=== PATIENT | male | born 1960 | race Hispanic/Latino ===

== ENCOUNTER 2019-07-23 08:48 | Emergency (ER) | payer SELFPAY ==
[2019-07-23] MEDS ORDERED: TETANUS,DIPH,PERTUSS(ACELL) VACCINE 0.5 ML SYRINGE IM ONE (09:04)
--- NOTE | 2019-07-23 09:09 | Emergency Department Report ---
HPI <JOSE C ANDRADE - Last Filed: 07/23/19 11:37> - HPI HPI: Room 1 The patient is a 58-year-old male presenting with chief complaint of facial injury after fall. The patient states he tripped and fell striking his face this morning is 04:30. Patient sustained a large laceration to the right side of his face. Patient denies loss of consciousness and currently denies pain. Patient admits to consuming alcohol this morning Location: [See above] Duration: [See above] Quality: [See above] Severity: [See above] Timing: [See above] Context: [See above] Modifying factors: [See above] Associated signs and symptoms: [see above] <CLAUDIA CARDENAS - Last Filed: 07/23/19 15:00> - General Chief Complaint: Fall Time Seen by Provider: 07/23/19 08:58 ED Past Medical Hx <JOSE C ANDRADE - Last Filed: 07/23/19 11:37> - Past Medical History Previous Medical History?: Yes Hx Asthma: Yes - Surgical History Past Surgical History?: Yes Additional Surgical History: hand surgery - Family History Family history: no significant - Social History Smoking Status: Current Some Day Smoker Substance Use Type: None (denies illicit drug use), Alcohol <CLAUDIA CARDENAS - Last Filed: 07/23/19 15:00> - Medications Home Medications: Home Medications Medication Instructions Recorded Confirmed Last Taken Type ALBUTEROL Inhaler (OR & NICU) 2 puff IH QID PRN 30 Days 11/01/15 Unknown Rx [ProAir HFA Inhaler] inhalation ALBUTEROL NEB's [Proventil 0.083% 2.5 mg IH QID PRN #1 box 11/01/15 Unknown Rx NEBS] predniSONE [Deltasone] 20 mg PO BID #10 tab 11/01/15 Unknown Rx Ibuprofen [Motrin 800 MG tab] 800 mg PO Q8HR PRN #20 tablet 07/23/19 Unknown Rx traMADoL [Ultram] 50 mg PO Q6HR PRN #10 tablet 07/23/19 Unknown Rx ED Review of Systems ROS: Stated complaint: ETOH Other details as noted in HPI <JOSE C ANDRADE - Last Filed: 07/23/19 11:37> ROS: Stated complaint: ETOH Other details as noted in HPI Constitutional: no symptoms reported Eyes: eye pain Respiratory: no symptoms reported Cardiovascular: denies: chest pain Endocrine: no symptoms reported Gastrointestinal: denies: abdominal pain Genitourinary: denies: dysuria Musculoskeletal: denies: back pain Neurological: denies: headache <CLAUDIA CARDENAS K - Last Filed: 07/23/19 15:00> Physical Exam - Physical Exam Vital Signs: Vital Signs 07/23/19 07/23/19 07/23/19 08:50 09:00 09:30 Temperature 97.2 F L Pulse Rate 85 59 L 80 Respiratory 14 11 L 16 Rate Blood Pressure 149/99 149/97 140/86 O2 Sat by Pulse 98 98 99 Oximetry 07/23/19 07/23/19 10:00 10:30 Temperature Pulse Rate 59 L 72 Respiratory 8 L 10 L Rate Blood Pressure 158/86 131/101 O2 Sat by Pulse 99 99 Oximetry <JOSE C ANDRADE - Last Filed: 07/23/19 11:37> - Physical Exam Vital Signs: Vital Signs 07/23/19 08:50 Temperature 97.2 F L Pulse Rate 71 Respiratory 14 Rate Blood Pressure 149/99 O2 Sat by Pulse 98 Oximetry Physical Exam: GENERAL: The patient is well-developed well-nourished []. [] HEENT: Normocephalic. Atraumatic. Extraocular motions are intact. Patient has moist mucous membranes. Large triangular laceration adjacent to the right side of the nose and overlying the right maxillary sinus NECK: Supple. No axial tenderness to palpation or step off CHEST/LUNGS: There is no respiratory distress noted. HEART/CARDIOVASCULAR: Regular. There is no tachycardia. ABDOMEN: Abdomen is soft, nontender. Patient has normal bowel sounds. There is no abdominal distention. SKIN: There is no rash. There is no edema. There is no diaphoresis. See HEENT above NEURO: The patient is awake, alert, and oriented. The patient is cooperative. The patient has no focal neurologic deficits. The patient has normal speech MUSCULOSKELETAL: There is no evidence of acute injury. <CLAUDIA CARDENAS - Last Filed: 07/23/19 15:00> ED Course Vital Signs 07/23/19 07/23/19 07/23/19 08:50 09:00 09:30 Temperature 97.2 F L Pulse Rate 85 59 L 80 Respiratory 14 11 L 16 Rate Blood Pressure 149/99 149/97 140/86 O2 Sat by Pulse 98 98 99 Oximetry 07/23/19 07/23/19 10:00 10:30 Temperature Pulse Rate 59 L 72 Respiratory 8 L 10 L Rate Blood Pressure 158/86 131/101 O2 Sat by Pulse 99 99 Oximetry <RAYMONDJOSE C - Last Filed: 07/23/19 11:37> Vital Signs 07/23/19 08:50 Temperature 97.2 F L Pulse Rate 71 Respiratory 14 Rate Blood Pressure 149/99 O2 Sat by Pulse 98 Oximetry <CLAUDIA CARDENAS - Last Filed: 07/23/19 15:00> - Laceration /Wound Repair Face Wound Location: face Wound Length (cm): 10 Wound's Depth, Shape: linear, flap Wound Explored: no foreign body removed Irrigated w/ Saline (ccs): 80 Betadine Prep?: Yes Anesthesia: 1% Lidocaine Volume Anesthetic (ccs): 8 Wound Repaired With: sutures Suture Size/Type: 6:0, proline Number of Sutures: 26 (2 continuous (25 sutures), 1 simple suture) Layer Closure?: No Sterile Dressing Applied?: Yes Progress: mild blood loss. Pt tolerated procedure well. No immediate complications post procedure <RAYMONDJOSE C - Last Filed: 07/23/19 11:37> ED Medical Decision Making - Lab Data Result diagrams: 07/23/19 09:32 07/23/19 09:32 <RAYMONDJOSE C - Last Filed: 07/23/19 11:37> - Lab Data Result diagrams: 07/23/19 09:32 07/23/19 09:32 Laboratory Tests 07/23/19 07/23/19 07/23/19 09:32 09:32 09:32 WBC 4.4 L RBC 3.52 L Hgb 14.2 Hct 41.5 MCV 118 H MCH 40 H MCHC 34 RDW 13.7 Plt Count 222 Lymph % (Auto) 20.1 Citrus % (Auto) 8.1 H Eos % (Auto) 0.8 Baso % (Auto) 2.4 H Lymph # 0.9 L Citrus # 0.4 Eos # 0.0 Baso # 0.1 Seg Neutrophils % 68.6 Seg Neutrophils # 3.0 Sodium 141 Potassium 3.9 Chloride 102.1 Carbon Dioxide 22 Anion Gap 21 BUN 10 Creatinine 0.7 L Estimated GFR > 60 BUN/Creatinine Ratio 14 Glucose 98 Calcium 8.8 Plasma/Serum Alcohol 0.37 H - Radiology Data Radiology results: report reviewed (CT head, CT facial bones, CT cervical spine), image reviewed (CT head, CT facial bones, CT cervical spine) [address] [address] Cat Scan Report Signed Patient: EDILBERTO MICHELE MR#: [id number] : 1960 Acct:[id number] Age/Sex: 58 / M ADM Date: 07/23/19 Loc: ED Attending Dr: Ordering Physician: CLAUDIA CARDENAS MD Date of Service: 07/23/19 Procedure(s): CT head/brain wo con Accession Number(s): [id number] cc: CLAUDIA CARDENAS MD CT head/brain wo con INDICATION / CLINICAL INFORMATION: 58 years Male; facial injury after fall. TECHNIQUE: Routine CT head without contrast. All CT scans at this location are performed using CT dose reduction for ALARA by means of automated exposure control. COMPARISON: None. FINDINGS: BRAIN / INTRACRANIAL CONTENTS: The brain appears to demonstrate appropriate attenuation for age. There is mild cerebral atrophy. The ventricular system is correspondingly appropriate in size and configuration. There is no CT evidence of acute intracranial hemorrhage or significant mass effect. ORBITS: No significant abnormality of visualized orbits. SINUSES / MASTOIDS: No significant abnormality the visualized paranasal sinuses or mastoid air cells. CRANIOCERVICAL JUNCTION: No significant abnormality. ADDITIONAL FINDINGS: None. IMPRESSION: 1. There is no CT evidence of acute intracranial process. Signer Name: Abdoul Obando MD Signed: 07/23/2019 9:59 AM Workstation Name: [id number] Transcribed By: MR Dictated By: Abdoul Obando MD Electronically Authenticated By: Abdoul Obando MD Signed Date/Time: 07/23/19958 DD/ 4 TD/TT: [address] [address] Cat Scan Report Signed Patient: EDILBERTO MICHELE MR#: [id number] : [birth year] Acct:[id number] Age/Sex: 58 / M ADM Date: 07/23/19 Loc: ED Attending Dr: Ordering Physician: CLAUDIA CARDENAS MD Date of Service: 07/23/19 Procedure(s): CT facial bones wo con Accession Number(s): [id number] cc: CLAUDIA CARDENAS MD CT facial bones without contrast. CLINICAL HISTORY: Facial pain and trauma. FINDINGS: There is no CT evidence of acute fracture involving the visualized facial bones. The orbital couch, sinuses and visualized sacrum at arches appear intact. The optic globes image appropriate size and configuration. No significant post septal inflammatory changes are identified. There is a defect involving the superficial right premaxillary soft tissues likely related to the patient's history of trauma. There is moderate mucosal thickening along the inferior right maxillary sinus. There is mild scattered mucosal thickening within the ethmoid air cells. All CT scans at this location are performed using the CT dose reduction for ALARA by means of automated exposure control. IMPRESSION: There is no CT evidence of acute fracture involving the visualized facial bones. There is a defect involving the superficial right premaxillary soft tissues with mild edema compatible with laceration and patient's history of trauma. Signer Name: Abdoul Obando MD Signed: 07/23/2019 10:13 AM Workstation Name: [id number] Transcribed By: MR Dictated By: Abdoul Obando MD Electronically Authenticated By: Abdoul Obando MD Signed Date/Time: 07/23/19 1013 DD/ 1007 TD/TT: [facility] [address] [place] [address] Cat Scan Report Signed Patient: EDILBERTO MICHELE MR#: [id number] : 1960 Acct:[id number] Age/Sex: 58 / M ADM Date: 07/23/19 Loc: ED Attending Dr: Ordering Physician: CLAUDIA CARDENAS MD Date of Service: 07/23/19 Procedure(s): CT cervical spine wo con Accession Number(s): [id number] cc: CLAUDIA CARDENAS MD CT cervical spine wo con INDICATION / CLINICAL INFORMATION: 58 years Male; facial injury after fall. TECHNIQUE: Axial CT images of the cervical spine were obtained. Sagittal and coronal reformatted images were produced. All CT scans at this location are performed using CT dose reduction for ALARA by means of automated exposure control. COMPARISON: None available. FINDINGS: POST- SURGICAL CHANGES: None. ALIGNMENT: There is slight curvature of the cervical spine, convex toward the right. However, there is no significant spondylolisthesis. VERTEBRAE: There are multilevel degenerative changes involving the cervical spine with endplate cystic findings.. However, there is no definitive CT evidence of acute fracture involving the cervical spine. INTRAVERTEBRAL DISCS: The mild rotation at C1-2 appears to be a positional. The left facet joint hypertrophy at C2-3 results in mild left neural foraminal narrowing. There is more notable left facet joint hypertrophy at C3-4 with mod erate left foraminal narrowing. There is significant disc space narrowing at this segment. There is a right-sided disc bulge at C4-5 which mildly encroaches on the right lateral recess at. There is moderate disc space narrowing with notable endplate changes at C5-6. The spondylosis effaces the ventral subarachnoid space with moderate right neural foraminal narrowing. There are notable endplate changes posteriorly at C6-7. The spondylosis appears to mildly efface the ventral subarachnoid space. PARASPINAL SOFT TISSUES: No prevertebral soft tissue fluid collections are identified. ADDITIONAL FINDINGS: None. IMPRESSION: 1. There is no CT evidence of acute fracture involving the cervical spine. 2. There are multilevel degenerative changes as detailed above. Signer Name: Abdoul Obando MD Signed: 07/23/2019 10:20 AM Workstation Name: [id number] Transcribed By: MR Dictated By: Abdoul Obando MD Electronically Authenticated By: Abdoul Obando MD Signed Date/Time: 07/23/19 1020 DD/ 1013 TD/TT: - Differential Diagnosis closed head injury, cervical strain, facial fracture, facial laceration <CLAUDIA CARDENAS - Last Filed: 07/23/19 15:00> Critical care attestation.: If time is entered above; I have spent that time in minutes in the direct care of this critically ill patient, excluding procedure time. <JOSE C ANDRADE - Last Filed: 07/23/19 11:37> Critical care attestation.: If time is entered above; I have spent that time in minutes in the direct care of this critically ill patient, excluding procedure time. <CLAUDIA CARDENAS - Last Filed: 07/23/19 15:00> ED Disposition <JOSE C ANDRADE - Last Filed: 07/23/19 11:37> Is pt being admited?: No Does the pt Need Aspirin: No Time of Disposition: 14:59 (DC to family when alcohol less than 0.08) <CLAUDIA CARDENAS - Last Filed: 07/23/19 15:00> Clinical Impression: Facial laceration, Alcohol intoxication, Closed head injury Disposition: DC-01 TO HOME OR SELFCARE Condition: Stable Instructions: Laceration (ED), Suture Care (ED) Additional Instructions: Your sutures need to be removed in 5 days. Return to the emergency department should you develop worsening symptoms, inability to tolerate food or liquids, high fever or any other concerns Prescriptions: Ibuprofen [Motrin 800 MG tab] 800 mg PO Q8HR PRN #20 tablet PRN Reason: Pain, Moderate (4-6) traMADoL [Ultram] 50 mg PO Q6HR PRN #10 tablet PRN Reason: Pain Referrals: PRIMARY CARE,MD [Primary Care Provider] - 3-5 Days
[2019-07-23] MEDS ORDERED: LIDOCAINE (1%) 10 MG/1 ML VIAL 20 ML MDV INFILTRATI ONE (09:35)
[2019-07-23] MEDS ORDERED: SODIUM CHLORIDE 0.9% IRR 500 ML BOTTLE IR ONE (09:42)
[2019-07-23 09:50] LABS: Basophils # (Auto) 0.1 K/mm3 (0.0-0.1); Basophils % (Auto) 2.4 % (0.0-1.8); Eosinophils % (Auto) 0.8 % (0.0-4.3); Hematocrit 41.5 % (35.5-45.6); Hemoglobin 14.2 gm/dl (11.8-15.2); Lymphocytes # (Auto) 0.9 K/mm3 (1.2-5.4); Lymphocytes % (Auto) 20.1 % (13.4-35.0); Mean Corpuscular HGB Conc 34 % (32-34); Mean Corpuscular Volume 118 fl (84-94); Monocytes # (Auto) 0.4 K/mm3 (0.0-0.8); Monocytes % (Auto) 8.1 % (0.0-7.3); Platelet Count 222 K/mm3 (140-440); Red Blood Count 3.52 M/mm3 (3.65-5.03); Red Cell Distribution Width 13.7 % (13.2-15.2)
[2019-07-23 09:52] LABS: BUN/Creatinine Ratio 14; Blood Urea Nitrogen 10 mg/dL (9-20); Calcium 8.8 mg/dL (8.4-10.2); Hemolysis Index 46
[2019-07-23] MEDS ORDERED: ceFAZolin/NS 1 GM/50 ML 1 GM/50 ML BAG IV ONE (10:00)
--- NOTE | 2019-07-23 10:03 | Cat Scan Report ---
CT head/brain wo con INDICATION / CLINICAL INFORMATION: 58 years Male; facial injury after fall. TECHNIQUE: Routine CT head without contrast. All CT scans at this location are performed using CT dos e reduction for ALARA by means of automated exposure control. COMPARISON: None. FINDINGS: BRAIN / INTRACRANIAL CONTENTS: The brain appears to demonstrate appropriate attenuation for age. Ther e is mild cerebral atrophy. The ventricular system is correspondingly appropriate in size and configu ration. There is no CT evidence of acute intracranial hemorrhage or significant mass effect. ORBITS: No significant abnormality of visualized orbits. SINUSES / MASTOIDS: No significant abnormality the visualized paranasal sinuses or mastoid air cells. CRANIOCERVICAL JUNCTION: No significant abnormality. ADDITIONAL FINDINGS: None. IMPRESSION: 1. There is no CT evidence of acute intracranial process. Signer Name: Abdoul Obando MD Signed: 07/23/2019 9:59 AM Workstation Name: [id number]
--- NOTE | 2019-07-23 10:17 | Cat Scan Report ---
CT facial bones without contrast. CLINICAL HISTORY: Facial pain and trauma. FINDINGS: There is no CT evidence of acute fracture involving the visualized facial bones. The orbita l couch, sinuses and visualized sacrum at arches appear intact. The optic globes image appropriate si ze and configuration. No significant post septal inflammatory changes are identified. There is a defect involving the superficial right premaxillary soft tissues likely related to the pat ient's history of trauma. There is moderate mucosal thickening along the inferior right maxillary sin us. There is mild scattered mucosal thickening within the ethmoid air cells. All CT scans at this [facility] ation are performed using the CT dose reduction for ALARA by means of automated exposure control. IMPRESSION: There is no CT evidence of acute fracture involving the visualized facial bones. There is a defect involving the superficial right premaxillary soft tissues with mild edema compatibl e with laceration and patient's history of trauma. Signer Name: Abdoul Obando MD Signed: 07/23/2019 10:13 AM Workstation Name: [id number]
--- NOTE | 2019-07-23 10:25 | Cat Scan Report ---
CT cervical spine wo con INDICATION / CLINICAL INFORMATION: 58 years Male; facial injury after fall. TECHNIQUE: Axial CT images of the cervical spine were obtained. Sagittal and coronal reformatted images were pr oduced. All CT scans at this location are performed using CT dose reduction for ALARA by means of aut omated exposure control. COMPARISON: None available. FINDINGS: POST-SURGICAL CHANGES: None. ALIGNMENT: There is slight curvature of the cervical spine, convex toward the right. However, there i s no significant spondylolisthesis. VERTEBRAE: There are multilevel degenerative changes involving the cervical spine with endplate cysti c findings.. However, there is no definitive CT evidence of acute fracture involving the cervical sp ine. INTRAVERTEBRAL DISCS: The mild rotation at C1-2 appears to be a positional. The left facet joint hype rtrophy at C2-3 results in mild left neural foraminal narrowing. There is more notable left facet jacek nt hypertrophy at C3-4 with moderate left foraminal narrowing. There is significant disc space narrow ing at this segment. There is a right-sided disc bulge at C4-5 which mildly encroaches on the right lateral recess at. The re is moderate disc space narrowing with notable endplate changes at C5-6. The spondylosis effaces th e ventral subarachnoid space with moderate right neural foraminal narrowing. There are notable endplate changes posteriorly at C6-7. The spondylosis appears to mildly efface the ventral subarachnoid space. PARASPINAL SOFT TISSUES: No prevertebral soft tissue fluid collections are identified. ADDITIONAL FINDINGS: None. IMPRESSION: 1. There is no CT evidence of acute fracture involving the cervical spine. 2. There are multilevel degenerative changes as detailed above. Signer Name: Abdoul Obando MD Signed: 07/23/2019 10:20 AM Workstation Name: [id number]
[2019-07-23] MEDS ORDERED: THIAMINE 100 MG, FOLIC ACID 1 MG, MULTIPLE VITAMIN INJ, ADULT 10 ML in SODIUM CHLORIDE ... IV ONE (10:46)
[2019-07-23] MEDS ORDERED: MAGNESIUM SULFATE 2 GM/50 ML BAG IV ONE (10:46)
[2019-07-23 15:49] VITALS: BP 151/95
== END 2019-07-23 15:48 | disposition home or self-care (01) ==
LOC: ED 08:48
DX: S01.21XA Laceration without foreign body of nose, initial encounter (principal); F17.200 Nicotine dependence, unspecified, uncomplicated; F10.129 Alcohol abuse with intoxication, unspecified; J45.909 Unspecified asthma, uncomplicated; W18.30XA Fall on same level, unspecified, initial encounter; Y93.89 Activity, other specified; Y92.89 Other specified places as the place of occurrence of the external cause; Y99.8 Other external cause status
CPT/HCPCS: 12015; 36415; 70450; 70486; 72125; 80048; 85025; 90471; 90715; 96365; 96366; 96368; 96375; 99284; J0690; J3411; J3475; J7030; 80320; G0480

== ENCOUNTER 2022-05-11 13:15 | Emergency (ER) | payer SELFPAY ==
[2022-05-11] MEDS ORDERED: SODIUM CHLORIDE 0.9% 1000 ML 1,000 ML IV ONE (13:31)
--- NOTE | 2022-05-11 13:36 | Emergency Department Report ---
ED Neuro Deficit HPI - General Chief Complaint: Neuro Symptoms/Deficit Stated Complaint: POSS CVA Time Seen by Provider: 05/11/22 13:31 Source: patient, EMS Mode of arrival: Stretcher Limitations: Physical Limitation - History of Present Illness Initial Comments: 61 yo heavy alcoholic brought in by EMS [place] having generalized body shakiness suspected to be seizure. Pt did not have history of seizure but according to family member patient have not had any alcohol in the last 2 days. Pt could not move his left upper or lower limb. History is very limited since patient is non verbal at this time but responding to verbal stimulus. No other modifying or associated factors reported. - Related Data Home Medications: Previous Rx's Medication Instructions Recorded Last Taken Type ALBUTEROL NEB's [Proventil 0.083% 2.5 mg IH QID PRN #1 box 11/01/15 Unknown Rx NEBS] Albuterol Mdi (or & Nicu Only) 2 puff IH QID PRN 30 Days 11/01/15 Unknown Rx [ProAir HFA Inhaler] inhalation predniSONE [Deltasone] 20 mg PO BID #10 tab 11/01/15 Unknown Rx Ibuprofen [Motrin 800 MG tab] 800 mg PO Q8HR PRN #20 tablet 07/23/19 Unknown Rx traMADoL [Ultram] 50 mg PO Q6HR PRN #10 tablet 07/23/19 Unknown Rx Allergies/Adverse Reactions: Allergies Allergy/AdvReac Type Severity Reaction Status Date / Time shellfish derived Allergy Swelling Verified 11/26/13 17:35 ED Review of Systems ROS: Stated complaint: POSS CVA Other details as noted in HPI Comment: All other systems reviewed and negative Neurological: weakness (left sided upper and lower limb with facial droops) ED Past Medical Hx - Past Medical History Hx Asthma: Yes - Surgical History Additional Surgical History: hand surgery - Social History Smoking Status: Never Smoker - Medications Home Medications: Home Medications Medication Instructions Recorded Confirmed Last Taken Type ALBUTEROL NEB's [Proventil 0.083% 2.5 mg IH QID PRN #1 box 11/01/15 Unknown Rx NEBS] Albuterol Mdi (or & Nicu Only) 2 puff IH QID PRN 30 Days 11/01/15 Unknown Rx [ProAir HFA Inhaler] inhalation predniSONE [Deltasone] 20 mg PO BID #10 tab 11/01/15 Unknown Rx Ibuprofen [Motrin 800 MG tab] 800 mg PO Q8HR PRN #20 tablet 07/23/19 Unknown Rx traMADoL [Ultram] 50 mg PO Q6HR PRN #10 tablet 07/23/19 Unknown Rx ED Neuro Physical Exam - General Limitations: Physical Limitation General appearance: alert, postictal Suspected Stroke: Yes - Head Head exam: Present: atraumatic, normal inspection - Eye Eye exam: Present: normal appearance Pupils: Present: normal accommodation - ENT ENT exam: Present: normal exam, normal orophraynx, mucous membranes dry - Neck Neck exam: Present: normal inspection. Absent: tenderness - Respiratory Respiratory exam: Present: normal lung sounds bilaterally. Absent: respiratory distress, accessory muscle use - Cardiovascular Cardiovascular Exam: Present: regular rate, normal rhythm, normal heart sounds - GI/Abdominal GI/Abdominal exam: Present: soft, normal bowel sounds. Absent: distended, tenderness - Extremities Exam Extremities exam: Present: normal capillary refill - Back Exam Back exam: Absent: tenderness - Neurological Exam Neurological exam: Present: alert - NIHSS Assessment Interval: Baseline 1a. Level of Consciousness: alert/keenly responsive 1b. LOC Questions: aphasic 1c. LOC Commands: performs 1 task correctly 2. Best Gaze: normal 3. Visual: no visual loss 4. Facial Palsy: minor paralysis (left droop) 5b. Motor Arm Right: no drift 5a. Motor Arm Left: no movement 6a. Motor Leg Left: no movement 6b. Motor Leg Right: no drift 7. Limb Ataxia: absent 8. Sensory: normal 9. Best Language: mild/moderate aphasia 10. Dysarthria: mild/moderate dysarthria 11. Extinction/Inattention: no abnormality Total Score: 14 Stroke Severity: Moderate Stroke - Psychiatric Psychiatric exam: Present: normal affect - Skin Skin exam: Present: warm, normal color ED Course Vital Signs 05/11/22 05/11/22 05/11/22 13:15 14:06 14:13 Temperature 98 F Pulse Rate 102 H Respiratory 16 16 14 Rate Blood Pressure 153/103 O2 Sat by Pulse 98 98 97 Oximetry 05/11/22 05/11/22 05/11/22 14:16 14:31 15:01 Temperature Pulse Rate 105 H 97 H 94 H Respiratory 14 12 Rate Blood Pressure 144/98 143/106 O2 Sat by Pulse 97 98 Oximetry 05/11/22 05/11/22 05/11/22 15:31 16:01 16:31 Temperature Pulse Rate 89 97 H 103 H Respiratory 13 8 L 16 Rate Blood Pressure 147/103 141/104 164/107 O2 Sat by Pulse 98 97 98 Oximetry 05/11/22 17:01 Temperature Pulse Rate 119 H Respiratory 17 Rate Blood Pressure 165/104 O2 Sat by Pulse 98 Oximetry - Reevaluation(s) Reevaluation #1: 05/11/22 15:12 Call made to [facility] neurology cell room operator-- - Consultations Consultation #1: 05/11/22 16:43 Dr Garfield Garcia neuro surg consulted at [facility] who accept pt for further evaluation and treatment - Lab Data Result diagrams: 05/11/22 14:00 05/11/22 14:00 Lab Results 05/11/22 05/11/22 05/11/22 Range/Units 14:00 14:00 14:00 WBC 7.1 (4.5-11.0) K/mm3 RBC 3.92 (3.65-5.03) M/mm3 Hgb 15.6 H (11.8-15.2) gm/dl Hct 44.8 (35.5-45.6) % MCV 114 H (84-94) fl MCH 40 H (28-32) pg MCHC 35 H (32-34) % RDW 14.7 (13.2-15.2) % Plt Count 167 (140-440) K/mm3 Lymph % (Auto) 8.4 L (13.4-35.0) % [place] % (Auto) 4.1 (0.0-7.3) % Eos % (Auto) 0.4 (0.0-4.3) % Baso % (Auto) 0.9 (0.0-1.8) % Lymph # (Auto) 0.6 L (1.2-5.4) K/mm3 [place] # (Auto) 0.3 (0.0-0.8) K/mm3 Eos # (Auto) 0.0 (0.0-0.4) K/mm3 Baso # (Auto) 0.1 (0.0-0.1) K/mm3 Seg Neutrophils % 86.2 H (40.0-70.0) % Seg Neutrophils # 6.1 (1.8-7.7) K/mm3 PT 14.6 (12.2-14.9) Sec. INR 1.03 (0.87-1.13) APTT 29.2 (24.2-36.6) Sec. Thrombin Time 19.3 (15.1-19.6) Sec. Sodium 129 L (137-145) mmol/L Potassium 3.9 (3.6-5.0) mmol/L Chloride 93.2 L (98-107) mmol/L Carbon Dioxide 17 L (22-30) mmol/L Anion Gap 23 mmol/L BUN 11 (9-20) mg/dL Creatinine 1.1 (0.8-1.3) mg/dL Estimated GFR > 60 ml/min BUN/Creatinine Ratio 10 % Glucose 129 H (75-100) mg/dL Calcium 9.1 (8.4-10.2) mg/dL Total Bilirubin 0.90 (0.1-1.2) mg/dL AST 29 (5-40) units/L ALT 23 (7-56) units/L Alkaline Phosphatase 145 H (35-129) units/L Total Creatine Kinase 39 L (55-170) units/L CK-MB (CK-2) < 1.0 (0.0-4.0) ng/mL CK-MB (CK-2) Rel Index 2.5 (0-4) Troponin T < 0.010 (0.00-0.029) ng/mL Total Protein 5.6 L (6.3-8.2) g/dL Albumin 3.5 L (3.9-5) g/dL Albumin/Globulin Ratio 1.7 % - EKG Data -: EKG Interpreted by Ne EKG shows normal: sinus rhythm Rate: normal noted with normal sinus rhythm at the rate of [address] depression or elevation in this normal ECG - Radiology Data FINDINGS: CTA NECK: Aortic arch: No significant abnormality. Cervical vertebral arteries: No occlusion or hemodynamically significant stenosis. Common Carotid arteries: No occlusion or hemodynamically significant stenosis. Internal carotid arteries: No occlusion or hemodynamically significant stenosis. CTA HEAD: Intracranial internal carotid arteries: No occlusion or significant stenosis. Anterior cerebral arteries: No occlusion or significant stenosis. Middle cerebral arteries: Right superior segment M2 occlusion. Intracranial vertebral arteries: No occlusion or significant stenosis. Basilar artery: No occlusion or significant stenosis. Posterior cerebral arteries: No occlusion or significant stenosis. No aneurysm. Additional findings: Thre is liriano white matter differentiation loss in the right MCA territory best seen along the insula. IMPRESSION: 1. CTA NECK: No occlusion or significant stenosis of the carotid or vertebral arteries. 2. 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 - Medical Decision Making Here with possible stroke but is likely postictal following alcohol withdrawal seizure -- but considering this patients age other differential such as stroke, myocardial infarction, hepatic encephalopathy, systemic infection with sepsis cannot be ruled out. In order to rule out those above we will go ahead and order CT scan of the brain, CBC, CMP, urinalysis, for any infectious process or electrolyte abnormality and thyroid panel for any hypo or hyper thyroidism. In the meantime we will go ahead and give immediate Ativan 2 mg and Keppra 1 g IV piggyback x1 while waiting for the above workup. Critical Care Time: Yes (75) Critical care time in (mins) excluding proc time.: 75 Critical care attestation.: If time is entered above; I have spent that time in minutes in the direct care of this critically ill patient, excluding procedure time. Brought in by EMS with right sided weakness after a fall and noted with M2 brain occlusion and due to high probability of clinically significant, life thre atening deterioration, this patient required my highest level of preparedness to intervene emergently and I personally spent this critical care time directly and personally managing this patient. This critical care time included obtaining a history; examining this patient; pulse oximetry ; ordering and review of studies ; arranging urgent treatment with development of a management plan ; evaluation of patient's response to treatment ; frequent reassessment ; and, discussion with other providers. This critical care time was performed to assess and manage the high probability of imminent, life-threatening deterioration that could result in multiple organ damage if not done in a timely fashion. ED Disposition Clinical Impression: Seizure CVA (cerebral vascular accident) Qualifiers: CVA mechanism: unspecified Qualified Code(s): I63.9 - Cerebral infarction, unspecified Disposition: 51 HOSPICE/MEDICAL FACILITY Is pt being admited?: No Does the pt Need Aspirin: No Condition: Serious Referrals: PRIMARY CARE, [Primary Care Provider] - 3-5 Days Time of Disposition: 16:44
--- NOTE | 2022-05-11 14:11 | Cat Scan Report ---
CT HEAD WITHOUT CONTRAST INDICATION / CLINICAL INFORMATION: Stroke symptoms. TECHNIQUE: All CT scans at this location are performed using CT dose reduction for ALARA by means of automated exposure control. COMPARISON: 2018. FINDINGS: HEMORRHAGE: None. EXTRA-AXIAL SPACES: Moderately prominent likely related to cortical atrophy. VENTRICULAR SYSTEM: Moderately enlarged likely related to central atrophy. CEREBRAL PARENCHYMA: Moderate white matter hypodensities likely representing microangiopathy. No acut e territorial infarct. MIDLINE SHIFT / HERNIATION: None. CEREBELLUM / BRAINSTEM: No significant abnormality. ORBITS: Normal as visualized. SOFT TISSUES: No significant abnormality. SKULL: No significant abnormality. PARANASAL SINUSES / MASTOID AIR CELLS: Mild right maxillary sinusitis. ADDITIONAL FINDINGS: None. IMPRESSION: 1. No CT evidence for acute intracranial pathology. Consider more sensitive MRI there is strong clini jose eduardo concern for acute ischemic event. 2. Findings related to the patient's referring physician Dr. Hugo in the ED via telephone at 1:05 P M central time on the date of study. Signer Name: Anil Guerrero MD Signed: 05/11/2022 2:06 PM Workstation Name: [id number]
[2022-05-11 14:21] LABS: Basophils # (Auto) 0.1 K/mm3 (0.0-0.1); Basophils % (Auto) 0.9 % (0.0-1.8); Eosinophils % (Auto) 0.4 % (0.0-4.3); Hematocrit 44.8 % (35.5-45.6); Hemoglobin 15.6 gm/dl (11.8-15.2); Lymphocytes # (Auto) 0.6 K/mm3 (1.2-5.4); Lymphocytes % (Auto) 8.4 % (13.4-35.0); Mean Corpuscular HGB Conc 35 % (32-34); Mean Corpuscular Volume 114 fl (84-94); Monocytes # (Auto) 0.3 K/mm3 (0.0-0.8); Monocytes % (Auto) 4.1 % (0.0-7.3); Platelet Count 167 K/mm3 (140-440); Red Blood Count 3.92 M/mm3 (3.65-5.03); Red Cell Distribution Width 14.7 % (13.2-15.2)
[2022-05-11 14:32] LABS: INR 1.03 (0.87-1.13); Partial Thromboplastin Time 29.2 Sec. (24.2-36.6)
[2022-05-11 14:33] LABS: Thrombin Time 19.3 Sec. (15.1-19.6)
[2022-05-11 14:45] LABS: Alanine Aminotransferase 23 units/L (7-56); Albumin 3.5 g/dL (3.9-5); BUN/Creatinine Ratio 10; Blood Urea Nitrogen 11 mg/dL (9-20); Calcium 9.1 mg/dL (8.4-10.2); Hemolysis Index 10
--- NOTE | 2022-05-11 14:52 | Cat Scan Report ---
CT angio neck, CT angio head HISTORY: stroke sx COMPARISON: None. TECHNIQUE: CTA of the neck and head is performed after IV contrast. 3-D/MIP reformats were postproces sed. Percentage stenosis is determined by direct quantitative measurements of diseased internal lo[place] tid artery diameter compared with normal distal internal carotid artery reference segments or by crit eria similar to NASCET where applicable. All CT scans at this location are performed using CT dose re duction for ALARA by means of automated exposure control. FINDINGS: CTA NECK: Aortic arch: No significant abnormality. Cervical vertebral arteries: No occlusion or hemodynamically significant stenosis. Common Carotid arteries: No occlusion or hemodynamically significant stenosis. Internal carotid arteries: No occlusion or hemodynamically significant stenosis. CTA HEAD: Intracranial internal carotid arteries: No occlusion or significant stenosis. Anterior cerebral arteries: No occlusion or significant stenosis. Middle cerebral arteries: Right superior segment M2 occlusion. Intracranial vertebral arteries: No occlusion or significant stenosis. Basilar artery: No occlusion or significant stenosis. Posterior cerebral arteries: No occlusion or significant stenosis. No aneurysm. Additional findings: Thre is liriano white matter differentiation loss in the right MCA territory best s een along the insula. IMPRESSION: 1. CTA NECK: No occlusion or significant stenosis of the carotid or vertebral arteries. 2. 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 Informed the E.D. 1:45. Signer Name: Elliott Amaro MD Signed: 05/11/2022 2:48 PM Workstation Name: [id number]
[2022-05-11 14:58] LABS: Creatine Kinase MB < 1.0 ng/mL (0.0-4.0)
[2022-05-11] MEDS ORDERED: LORazepam 2 MG/ML VIAL ONE (15:35)
[2022-05-11] MEDS ORDERED: LORazepam 2 MG/ML VIAL IV ONE (15:36)
[2022-05-11 17:05] VITALS: BP 165/104
--- NOTE | 2022-05-15 14:01 | Electrocardiograph Report ---
[facility] Test Date: 2022-05-11 Test Time: 13:52:15 Pat Name: EDILBERTO MICHELE Department: Room: Gender: M [employer]: GP : [id number] Requested By: BONITA HENRY Order Number: [id number] Reading MD: Mario Burger Measurements Intervals [place] Rate: 98 P: 72 AK: 146 QRS: 33 QRSD: 86 T: 41 QT: 379 QTc: 484 Interpretive Statements Sinus rhythm No previous ECG available for comparison Electronically Signed On 05-15-2022 14:00:43 EDT by Mario Burger
== END 2022-05-11 17:48 | disposition hospice, inpatient (51) ==
LOC: ED 13:15
DX: I63.9 Cerebral infarction, unspecified (principal); J45.909 Unspecified asthma, uncomplicated; Z98.890 Other specified postprocedural states; Z91.013 Allergy to seafood; Z79.899 Other long term (current) drug therapy
CPT/HCPCS: 36415; 70450; 70496; 70498; 80053; 82550; 82553; 84484; 85025; 85610; 85670; 85730; 93005; 96361; 96374; 99291; 99292; J2060; J7030; Q9967; 99285